=== PATIENT | male | born 1970 | race African-American/Black ===

== ENCOUNTER 2018-01-22 16:55 | Emergency (ER) | payer BC ==
--- NOTE | 2018-01-22 17:25 | UC ---
Zaki Au Natalie, scribed for Nigel Almonte MD on 01/22/18 at 1718 . Cardiac HPI - HPI Summary HPI Summary: The patient is a 47 y/o M presenting to [facility] c/o intermittent chest pain, SOB, and racing heart beat starting a few weeks ago, worsening gradually. Last week, he felt his heart racing and had a co-worker check his pulse, which was reported to be in the 200s. Today, he woke up and his heart started beating fast , but has not stopped since then. He has not had any syncopal episodes. He has not had any prior cardiac history, but he has hx of diabetes, IBS, COPD, and hypercholesterolemia. Smoker and drinker. - History of Current Complaint Stated Complaint: CHEST PAIN, HEART RACING Time Seen by Provider: 01/22/18 17:03 Hx Obtained From: Patient Onset/Duration: Gradual Onset, Lasting Weeks, Still Present Timing: Constant Initial Severity: Moderate Current Severity: Severe Character: Fast Aggravating Factor(s): Nothing Alleviating Factor(s): Nothing Associated Signs & Symptoms: Positive: Chest Pain, SOB - Allergy/Home Medications Allergies/Adverse Reactions: Allergies Allergy/AdvReac Type Severity Reaction Status Date / Time naproxen AdvReac Diarrhea Verified 01/22/18 17:30 PMH/Surg Hx/FS Hx/Imm Hx Endocrine History: Diabetes Other Endocrine History: diabetes Other Respiratory History: COPD Other GI/ History: Irrital bowel syndrome - Surgical History Surgical History: Yes Surgery Procedure, Year, and Place: PILONDIAL CYST REMOVAL - Family History Known Family History: Positive: Diabetes - Social History Alcohol Use: None Substance Use Type: Prescribed Substance Use Comment - Amount & Last Used: tramadol Smoking Status (MU): Light Every Day Tobacco Smoker Type: Cigarettes Amount Used/How Often: rolls own cigs Review of Systems Constitutional: Negative Respiratory: Shortness Of Breath Cardiovascular: Palpitations - racing heart, Chest Pain All Other Systems Reviewed And Are Negative: Yes Physical Exam Triage Information Reviewed: Yes Appearance: Well-Appearing, No Pain Distress Vital Signs Reviewed: Yes ENT: Positive: Normal ENT inspection Neck: Positive: Supple, Nontender Respiratory: Positive: Chest non-tender, Lungs clear, Normal breath sounds, No respiratory distress Cardiovascular: Positive: RRR, No Murmur, Other: - on auscultation of chest heart sounds at 100 BPM Abdomen Description: Positive: Nontender Musculoskeletal: Positive: ROM Intact, No Edema Neurological: Positive: Alert, Muscle Tone Normal. Negative: Lethargic Psychological: Positive: Normal Response To Family Skin Exam: Normal Diagnostics - EKG Cardiac Rate: Tachycardia - 207 BPM Cardiac Rhythm: Other Rhythm: New - SVT. Possible WPW. - Assessment/Plan Course Of Treatment: The patient is a 47 y/o M with racing heart and intermittent chest pain and SOB. EKG shows SVT with tachycardic HR of 207 BPM. The patient has no sensation of palpitations on examination presently, and is not having CP or SOB. The patient was discussed with Dr Yusuf in the ER at [place] and EMS is transporting the patient there for further work up. Saline lock established. He is very stable with symptoms of over a week, and no episodes of dizziness or syncope. - Clinical Impression Provider Diagnoses: palpitations. shortness of breath. hypertension Discharge - Sign-Out/Discharge Documenting (check all that apply): Discharge/Admit/Transfer - Discharge Plan Condition: Good Disposition: [facility]ANS [facility] Referrals: Grant Lawrence MD [Primary Care Provider] - - Billing Disposition and Condition Condition: GOOD Disposition: EMTALA The documentation as recorded by the Zaki richey Natalie accurately reflects the service I personally performed and the decisions made by , Nigel Almonte MD.
[2018-01-22 17:35] VITALS: BP 139/73
== END 2018-01-22 17:25 | disposition short-term general hospital (02) ==
LOC: UCEAST 16:55
DX: R06.02 Shortness of breath (principal); R00.2 Palpitations; I10 Essential (primary) hypertension; R07.9 Chest pain, unspecified; E11.9 Type 2 diabetes mellitus without complications; J44.9 Chronic obstructive pulmonary disease, unspecified; R00.0 Tachycardia, unspecified; F17.210 Nicotine dependence, cigarettes, uncomplicated; Z88.6 Allergy status to analgesic agent
CPT/HCPCS: 93005; 99213; G0463

== ENCOUNTER 2018-01-22 17:50 | Inpatient (IN) | payer BC ==
[2018-01-22] MEDS ORDERED: NS 0.9% 1000 ML*IV.FLUID IV ONE (18:32)
[2018-01-22 18:51] LABS: ABS Basophils 0.1 10^3/ul (0-0.2); ABS Eosinophils 0 10^3/ul (0-0.6); ABS Lymphocytes 3.7 10^3/ul (1.0-4.8); ABS Monocytes 0.7 10^3/ul (0-0.8); ABS Neutrophils 7.1 10^3/ul (1.5-7.7); ABS Nucleated RBC 0 10^3/ul; Eosinophil % 0.1 % (0-6); Hematocrit 31 % (42-52); Hemoglobin 11.2 g/dl (14.0-18.0); Mean Corpuscular HGB Conc 36 g/dl (31-36); Mean Corpuscular Hemoglobin 37 pg (27-31); Mean Corpuscular Volume 105 fL (80-94); Mean Platelet Volume 6.6 um3 (7.4-10.4); Nucleated Red Blood Cells % 0.2; Platelet Count 263 10^3/ul (150-450); Red Blood Count 2.99 10^6/ul (4.0-5.4); Red Cell Distribution Width 15 % (10.5-15); White Blood Count 11.5 10^3/ul (3.5-10.8)
[2018-01-22 19:01] LABS: INR 1.1 (0.77-1.02)
[2018-01-22] MEDS: Adenosine* 3 MG/ML VIAL IV PUSH ONE ×2 (19:03→19:56)
[2018-01-22] MEDS ORDERED: Adenosine* 3 MG/ML VIAL ONE (19:10)
[2018-01-22] MEDS ORDERED: Amiodarone IV VIAL* 6 ML ONE (19:22)
[2018-01-22 19:24] LABS: EGFR Non-African American 98.5 (>60)
[2018-01-22] MEDS ORDERED: Amiodarone 150 MG IVPREMIX* 150 MG/100 ML BAG IV ONE ×3 (19:25→20:06)
--- NOTE | 2018-01-22 19:29 | RAD ---
Indication: Fever, sensation of tachycardia. Tobacco use. Comparison: October 10, 2017 CT abdomen. August 03, 2017 chest radiograph. Technique: Upright AP 1903 hours Report: Clear lungs and pleural spaces. Negative for pneumothorax. The heart, pulmonary vasculature, and mediastinal contours are unremarkable. Unremarkable osseous structures and soft tissue contours. IMPRESSION: No evidence for acute intrathoracic disease.
[2018-01-22] MEDS ORDERED: Amiodarone 360 MG IVPREMIX* 360 MG/200 ML BAG IV ONE ×2 (19:33→20:11)
[2018-01-22] MEDS ORDERED: Metoprolol Tartrate TAB* 25 MG PO ONE (19:34)
[2018-01-22] MEDS ORDERED: Amiodarone IV VIAL* 3 ML ONE (19:34)
[2018-01-22] MEDS ORDERED: Aspirin 81 mg CHEW TAB* 81 MG TAB.CHEW PO ONE (19:35)
[2018-01-22] MEDS ORDERED: Docusate CAP* 100 MG PO PRN (20:07)
[2018-01-22] MEDS ORDERED: Morphine VIAL* 4 MG/ML VIAL (1 ml vial) IV PRN (20:07)
[2018-01-22] MEDS ORDERED: Senna TAB PO PRN (20:07)
[2018-01-22] MEDS ORDERED: Ondansetron INJ* 2 MG/ML VIAL IV PRN (20:07)
[2018-01-22] MEDS ORDERED: Magnesium Sulfate IV* 3 GM in NS 0.9% 100 ML* 100 ML IVPB ONE (20:09)
--- NOTE | 2018-01-22 20:10 | CONSULT ---
Subjective Date of Service: 01/22/18 Interval History: Date of admission and consult 01/22/2018 Location ER to go to ICU on Hospitalist service PMD: Dr. Lawrence CC: Palpitations Reason for consult: Ventricular tachycardia HPI: Ed Johnson is an man with a history as below. He is a reluctant historian and is accompanied by girlfriend and healthcare proxy Chrissie who helped facilitate history taking. He has had on and off chest discomfort for the last month. He has also had intermittent palpitations. These do not seem to be definitely related. He denies any history of presyncope, syncope, seizures, dyspnea or edema. He had some sweating at night but no fevers or chills. He went to urgent care and was found with a WCT that spontaneously resolved. This recurred again, did not respond to vagal maneuvers. Broke with 150 mg IV amiodarone slow push, recurred broke with another 150 mg of IV amiodarone slow push. He is only minimally symptomatic with slight palpitations during this and no active chest discomfort. PMhx Type 2 diabetes well controlled hypertriglyceridemia on gemfibrozil Alcoholism B12 deficiency IBS Denies any history of kidney disease, bleeding or blood transfusion ALLERGIES: Naproxen causing GI upset Soc Hx Alcoholism confirmed with Chrissie drinks a pint of vodka every other day, rolls own cigarettes, denies any hx of IVDU Fam hx: No early cad Medications Active Medications: Amiodarone HCl (Nexterone 360 Mg/200 Ml Ivpremix*) 360 mg in 200 mls @ 33.333 mls/hr IV ED ONCE ONE PRN Reason: 1 MG/MIN Stop: 01/23/18 01:32 Last Admin: 01/22/18 19:54 Dose: 33.333 mls/hr Amiodarone HCl (Nexterone Drip*) 150 mg in 100 mls @ 600 mls/hr IV ED ONCE ONE Stop: 01/22/18 20:15 Metoprolol Tartrate (Lopressor Tab*) 25 mg PO Q8H [facility] Home Medications: Albuterol HFA INHALER* [Ventolin HFA Inhaler*] 2 puff INH Q6H PRN 08/31/17 [ History Confirmed 01/22/18] Cyanocobalamin INJ * [Vitamin B12 INJ *] 1,000 mcg IM MONTHLY 01/22/18 [History Confirmed 01/22/18] Gemfibrozil TAB* [Lopid TAB*] 600 mg PO BID 01/22/18 [History Confirmed ] Hyoscyamine ER (NF) [Levbid (NF)] 0.375 mg PO DAILY 01/22/18 [History Confirmed 01/22/18] Multivitamins/Minerals TAB* [Theragran/minerals TAB*] 1 tab PO DAILY 01/22/18 [ History Confirmed 01/22/18] Omeprazole CAP* [Prilosec CAP* 20 MG] 20 mg PO DAILY 01/22/18 [History Confirmed 01/22/18] Review of Systems - Measurements Intake and Output: Intake and Output Last 24 Hours 01/20/18 01/21/18 01/22/18 01/23/18 06:59 06:59 06:59 06:59 Weight 150 lb - Review of Systems Constitutional Symptoms: Negative: Weight Gain, Weight Loss, Weakness, Unexplained Falls Dermatology: Negative: Rash, Skin Lesions, Skin Lumps HEENT: Negative: Change in Hearing, Vertigo Eyes: Negative: Change in Vision, Double Vision Thyroid: Positive: Palpitations Negative: Primary Hypothyroidism, Primary Hyperthyroidism, Weight Loss, Weight Gain Pulmonary: Negative: Sputum, Hemoptysis, Wheezing, Respiratory Distress, Shortness of Breath, Home Oxygen Cardiology: Positive: Chest Pain, Palpitations Negative: Shortness of Breath, Swelling of Ankles, Peripheral Vascular Dis, Edema, Faintness, Syncope, Claudication, Paroxysmal Nocturnal Dyspnea, Orthopnea Gastroenterology: Positive: Diarrhea, Change in Bowel Habits Negative: Abdominal Pain, Nausea, Difficulty Swallowing, Haematemesis, Melena Genital - Urinary: Negative: Dysuria, Hematuria Musculoskeletal: Negative: Joint Pain, Joint Stiffness Endocrinology: Positive: Diabetes Negative: Thyroid Problems, Adrenal Problems, Family Hx Endocrine Disorders, Obesity, Hyperglycemia, Hypoglycemia, Polydipsia, Polyuria Hematologic/Lymphatic: Negative: Use of Anticoagulant, Use of Antiplatelet Drugs Neurology: Negative: Headaches, Migraines, Change in Vision, Diplopia, Dizziness, Change in Balancing, Change in Coordination, Change in Speech, Change in Sphincter Function, Change in Walking, Hx of Stroke\TIA, Hx Seizures Psychiatry: Negative: Unusual Anxiety, Suicidal Ideation Allergic/Immunologic: Negative: Hx HIV, Immunocompromise Review of Systems Statement: All other review of systems negative, unless stated above. Objective Vital Signs: Temp Pulse Resp BP Pulse Ox 101.2 F 117 16 137/62 97 01/22/18 18:15 01/22/18 18:39 01/22/18 18:15 01/22/18 18:15 01/22/18 18:39 Appearance: nad, pleasant Ears/Nose/Mouth/Throat: Clear Oropharnyx Neck: NL Appearance and Movements; NL JVP, Trachea Midline Respiratory: Symmetrical Chest Expansion and Respiratory Effort, Clear to Auscultation Cardiovascular: No Edema, - - RRR with ectopy, no significant murmur noted Abdominal: NL Sounds; No Tenderness; No Distention Lymphatic: No Cervical Adenopathy Extremities: No Edema, No Clubbing, Cyanosis Skin: No Rash or Ulcers Neurological: Alert and Oriented x 3 Laboratory Results: 01/22/18 18:42 01/22/18 18:42 INR (Anticoag Therapy) 1.10 (0.77-1.02) H 01/22/18 18:42 APTT 35.0 seconds (26.0-36.3) 01/22/18 18:42 Total Bilirubin 0.40 mg/dL (0.2-1.0) 01/22/18 18:42 AST TNP 01/22/18 18:42 ALT 12 U/L (7-52) 01/22/18 18:42 Alkaline Phosphatase 91 U/L (34-104) 01/22/18 18:42 B-Natriuretic Peptide 757 pg/mL (-100) H 01/22/18 18:42 Total Protein 6.8 g/dL (6.4-8.9) 01/22/18 18:42 Albumin 3.8 g/dL (3.2-5.2) 01/22/18 18:42 Globulin 3.0 g/dL (2-4) 01/22/18 18:42 Albumin/Globulin Ratio 1.3 (1-3) 01/22/18 18:42 01/22/18 18:42 Troponin I 0.53 H* mg 1.6 repeat 1.3 procalcitonin 0.1 lipase 72 Diagnostic Imaging: EKG 06/2015: NSR, normal EKG EKG 01/22/2018: WCT appears to be VT rate 210 bpm originating near left posterior fascicle EKG afterwards: NSR with with inferior and anterolaeral deep symmetric TWI consider memory and/or ischemic related along with PVC's and NSVT with same morphology as VT Assessment/Plan In summary, Mr. Johnson is a 47 year old man with a history of alcohol and tobacco abuse ongoing, DM well controlled, high triglycerides admitted with minimally symptomatic ventricular tachycardia, febrile without obvious infectious source. - Admit to ICU - Continue amiodarone gtt protocol - Continue heparin gtt - Continue aspirin 81 mg po daily - Will hold off on second anti-platelet for now - Start metoprolol tartrate 25 mg po TID (ordered) - Trend troponin to peak - Replace Mg to 2 or greater - Unable to analyze potassium due to lipemic sample and same on repeat. Discussed with Dr. Mason from Pathology and this is not due to lack of analyzing capabilities at this hospital. Recent triglyceride < 500, lipase normal. K samples since 2011 have been normal, renal function normal. Will empirically give 20 meq k now. Will keep NPO and check K again in AM. - Check echocardiogram (ordered) - Follow blood cultures, would check HIV status for unexplained fever - Would treat fever with tylenol and external passive cooling as needed, may be helping drive arrhythmias. - Check toxicology screen - Needs ETOH withdrawal protocol - Discussed with Dr. Whitehead on phone, will plan on coronary angiogram with intent for revascularization pending outcomes of above - Discussed with Dr. Skaggs Thank you for allowing me to participate in the cardiovascular care of this patient. Please do not hesitate to contact me with questions or concerns.
[2018-01-22] MEDS ORDERED: Heparin DRIP 25,000 UNITS(*) 25,000 UNITS/500 ML BAG IV SCH (20:15)
[2018-01-22] MEDS ORDERED: NS 0.9% 1000 ML* 1,000 ML IV SCH (20:15)
[2018-01-22] MEDS ORDERED: Thiamine IV* 100 MG/ML 2 ML VIAL IM ONE (20:16)
[2018-01-22] MEDS ORDERED: Dextrose 50% Syringe 50 ML* 25 GM/50 ML SYRINGE IV PUSH PRN (20:17)
[2018-01-22] MEDS ORDERED: Thiamine IV* 100 MG, Folic Acid IV* 1 MG, Multiple Vitamin IV ADULT* 10 ML in NS 0.9% 1... IV ONE (20:18)
[2018-01-22 20:40] LABS: Urine Appearance Clear; Urine Blood 1+ (Negative); Urine Color Yellow; Urine Ketones 1+ (Negative); Urine Protein 2+(100 mg/dL) (Negative); Urine Specific Gravity 1.016 (1.010-1.030); Urine Urobilinogen Negative (Negative)
[2018-01-22] MEDS ORDERED: Albuterol HFA INHALER* 8 gm MDI INH PRN (20:40)
[2018-01-22] MEDS ORDERED: Amiodarone TAB* 400 MG ONE (20:50)
[2018-01-22] MEDS ORDERED: Amiodarone TAB* 400 MG PO ONE (20:52)
[2018-01-22] MEDS: Metoprolol Tartrate TAB* 25 MG PO SCH (21:00)
[2018-01-22] MEDS ORDERED: LORazepam INJ* 2 MG/ML 1 ML VIAL IV PUSH SCH (21:00)
[2018-01-22] MEDS ORDERED: Heparin VIAL(*) 5000 UNITS/ML VIAL (FIVE THOUSAND) IV SCH (21:00)
[2018-01-22] MEDS: Gemfibrozil TAB* 600 MG PO SCH (21:31)
[2018-01-22] MEDS: LORazepam INJ* 2 MG/ML 1 ML VIAL IV SCH (21:33)
[2018-01-22] MEDS ORDERED: Potassium Chlor TAB* 20 MEQ TAB.ER PO ONE (22:33)
[2018-01-22] MEDS: Acetaminophen TAB* 325 MG PO PRN (23:13)
[2018-01-22] MEDS ORDERED: Magnesium Sulfate 1 GM IV* 1 GM/100 ML BAG IV ONE (23:13)
--- NOTE | 2018-01-22 23:24 | HP ---
CC: Dr. Lawrence; Hiram Durham DO * HISTORY AND PHYSICAL: DATE OF ADMISSION: 01/22/18. PRIMARY CARE PHYSICIAN: Dr. Lawrence STATUE CARVER: Hiram Durham DO. TIME OF EVALUATION: 1999. CHIEF COMPLAINT: Chest pain and shortness of breath. HISTORY OF PRESENT ILLNESS: This is a 47-year-old male with a past medical history of alcohol and tobacco use with diabetes and hypertension, who presents to the emergency room for urgent care with v-tach. The patient states he has been having chest pain and palpitations off and on for the past 2 weeks to may be a month, they have become more frequent in duration and lasting longer. He also gets intermittent shortness of breath. He went to urgent care today where they did an EKG and found that he was in v-tach. They brought him over to the emergency room for further evaluation. The patient is alert with stable vitals when he is in v- tach. He states he denies any loss of consciousness or presyncopal symptoms. No cough. As mentioned, intermittently short of breath, some nausea, no vomiting, no abdominal pain, no urinary symptoms, no changes in his weight. He has issues with IBS. He states that he has been having a lot of diarrhea, but has improved with medication. No lower extremity swelling. No recent traveling. No recent antibiotic use. He was having some sweating in the emergency room and noted to have a fever as well. Currently, he is chest pain free. No shortness of breath. His v-tach broke on its own on arrival to the emergency room, went back into v-tach rather quickly, has required several boluses of amiodarone, which have temporized and currently has tachycardia with ectopy, but does back into v-tach rather frequently. In the emergency room, Dr. Hiram Durham from Cardiology evaluated the patient and the patient was admitted to the ICU. He has been given a full dose aspirin, 2 L of fluid, amiodarone, and metoprolol. PAST MEDICAL HISTORY: 1. Diabetes, diet controlled. He just checks his glucose, not on any medications. 2. Hypertension. 3. Hyperlipidemia. 4. IBS. 5. COPD, on room air. 6. Tobacco use. 7. Heavy alcohol use. MEDICATIONS: 1. Omeprazole 20 mg p.o. daily. 2. Gemfibrozil 600 mg p.o. b.i.d. 3. Multivitamin p.o. daily. 4. Levbid 0.375 mg p.o. daily. 5. Vitamin B12 injections 1000 micrograms monthly. 6. Albuterol inhaler two puffs q.6 hours as needed. ALLERGIES: NAPROXEN, diarrhea. FAMILY HISTORY: Not completely well known as parents at a young age. He thinks his father from cardiac complications after having a pacemaker placed. SOCIAL HISTORY: The patient lives with his girlfriend, Chrissie who is his healthcare proxy. 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 As mentioned, he drinks heavy alcohol, about a pint of vodka per day. He rolls his own tobacco and smokes about a pack a day for the past several years. No illicit drug use. CODE STATUS: Full code. REVIEW OF SYSTEMS: A 14-point review of systems as mentioned in the HPI, otherwise negative. PHYSICAL EXAMINATION GENERAL: In no acute distress, minimally mild tremor noted. Girlfriend is at the bedside. VITAL SIGNS: Temp T max 101.2, pulse rate 111, respiratory rate 18, oxygen saturation 97% on room air, and blood pressure 133/94. HEENT: Head, normocephalic. Pupils are equal and reactive, anicteric. Oropharynx, mucous membranes moist. NECK: Supple. No lymphadenopathy. RESPIRATORY: Diminished breath sounds. No wheezing, rhonchi or rales. CARDIAC: Tachycardia with ectopic beats with systolic murmur most prominent at the bases. ABDOMEN: Positive bowel sounds. Soft, nondistended. Hepatomegaly noted. EXTREMITIES: No clubbing, cyanosis or edema. +1 DPs. NEUROLOGIC: Alert and oriented x3. As mentioned, mild tremor noted. No gross focal neurologic deficits. DIAGNOSTIC STUDIES/LAB DATA: White count 11.5, hemoglobin 11.2, hematocrit 31 , platelets 263, INR is 1.10. Sodium is 135, potassium 100, bicarb 19, BUN 9, creatinine 0.83, glucose 162, lactic acid 3.3, troponin 0.53, total CK is 204, mag is 1.6, BNP is 757. Procalcitonin is 0.1. Urine shows +1 ketones, +1 blood. Urine tox screen in negative. Alcohol is pending. Radiographic data: Chest x-ray shows no evidence for acute intrathoracic disease. EKG, sinus tachycardia with bigemini and runs of V-tach. His initial EKG on arrival shows V-tach with a rate of 207. ASSESSMENT AND PLAN: This is a 47-year-old male with a past medical history of hypertension, hyperlipidemia, diabetes with a significant tobacco and alcohol history, who presents to the emergency room from an urgent care with sustained stable ventricular tachycardia. 1. Stable ventricular tachycardia. Assessment: Unclear of the etiology concerning for ischemia, also cardiomyopathy related to his heavy alcohol use. There is concern about maintaining him in sinus with the amiodarone drip, Dr. Durham is at the bedside assisting. Plan: He is admitted to the ICU. We will continue him on the amiodarone drip for now, may need to switch to lidocaine drip. The patient has been started on heparin drip. We will continue him on metoprolol and aspirin. We are following up on this potassium trending his troponin, checking a lipid panel, ordering an echocardiogram. We will keep him n.p.o. after midnight. Will check a lipase. We will also check an alcohol level and repeat a lactic acid, and follow up with Dr. Durham from Cardiology and also I did sign out to Dr. Bruno Durham, the food and nutrition supervisor, who will take over service in the morning. 2. Alcohol use. Assessment: The patient with significant alcohol history. No signs of withdrawal currently. He does have a temperature that could be related to his alcohol use. No focal signs of infection. Plan: We will put him on an Ativan taper and p.r.n. and WAM protocol. We will give him banana bag and follow up on his alcohol level. He also needs a repeat of his AST. We will hold off on starting him on a statin in the setting with heavy alcohol use at this time. 3. Fever. Assessment: It could be related to his alcohol use. No focal signs of infection currently. Plan: Blood cultures had been drawn. We will hold off on antibiotics at this point. 4. Chronic medical problems: Chronic obstructive pulmonary disease. The patient is on room air, appears stable. We will continue his albuterol inhaler as needed. Irritable bowel syndrome. I suspect this is related to his alcohol use and really a true irritable bowel syndrome. We will continue him on Levbid for now. Hyperlipidemia. As mentioned, we will check his lipid panel. Continue his gemfibrozil. Statin may be contraindicated with his alcohol use and following up on his AST level. Gastroesophageal reflux disease. Continue omeprazole 20 mg daily. Diabetes, diet controlled. We will check a hemoglobin A1c. Lispro sliding scale for now. Hypertension. The patient is not on any agents at home. He has been started on metoprolol. 10. DVT prophylaxis. The patient scores moderate risk. He is on a heparin drip. 11. Code status. Full code. PATIENT TIME: Greater than 60 minutes was spent doing history and physical, more than half the time spent in direct patient contact and critical care time. Both Dr. Hiram Durham and Dr. Bruno Durham from Cardiology and the food and nutrition supervisor are aware and involved in this patient's case. [id number]/[facility] #: [id number] MTDD
[2018-01-22] MEDS ORDERED: Mouth Piece, Nicotine* 1 EACH CARTRIDGE INH PRN ×2 (23:37)
[2018-01-22] MEDS ORDERED: KCL 20 MEQ/100 ML IVPREMIX* 20 MEQ/100 ML BAG IV SCH (23:45)
[2018-01-23] MEDS: KCL premix 10 MEQ/50 ML IVPREMIX x 4 RUNS IV SCH ×4 (00:22→04:29)
--- NOTE | 2018-01-23 00:23 | ED ---
Anibal Au Rebecca, scribed for Leatha Tyler MD on 01/22/18 at 1840 . Palpitations / Dysrhythmia - HPI Summary HPI Summary: Pt is a 47 y/o M BIBA from [facility] due to SVT vs VT after originally presenting for palpitations. Pt has been experiencing intermittent episodes of palpitations for about a month, more consistently for the past week, especially worsening (01/18/18, 4 days ago) with sx described as fast. While at work earlier today, his heart rate felt fast. His coworker measured it manually , counting >200 bpm which prompted him to come to [facility]. On evaluation in the ED, pt's HR is between 217 and 225 and the pt does not feel the palpitations currently. While at [facility], his HR was between 220 and 240 bpm and he spontaneously converted without medication or maneuver and he was without symptoms with the rapid HR. Additionally notes subjective fever, though when measured at home it has been normal, and was 101.2 in the ED. Pt also reports intermittent SOB and CP, particularly with exertion, and no complaints of CP currently., and the CP and rapid HR/palpitations are not necessarily at the same time. Negative cough and N/V. No recent illness. Negative cardiac Hx with a PMHx including HTN (is not on medication), HLD, and DM. SHx daily alcohol use (~1 pint of liquor over 2 days with his last drink yesterday), current smoker, and negative drug use. Is not on blood thinners. PCP is Dr. Lawrence and was last seen on Monday (01/17/18, 5 days ago) which was normal. States that with naproxen he experiences diarrhea, no hives or anaphylaxis. 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, Medical Records - [facility] Onset/Duration: Gradual Onset, Lasting Weeks - About 1 month, Still Present, Worse Since - 1 week, especially 4 days ago Timing: Intermittent Episodes Lasting: - minutes to hours Severity Initially: Moderate Severity Currently: Moderate Character: Fast Aggravating: Nothing Alleviating: Other - Spontaneous resolution in today Associated Signs & Symptoms: Chest Pain, Shortness of Breath - Risk Factors Cardiac: Hypertension, Smoking - former, Diabetes, Elevated Lipids, Family History - Allergy/Home Medications Allergies/Adverse Reactions: Allergies Allergy/AdvReac Type Severity Reaction Status Date / Time naproxen AdvReac Diarrhea Verified 01/22/18 17:30 Home Medications: Home Medications Cyanocobalamin INJ * [Vitamin B12 INJ *] 1,000 mcg IM MONTHLY 01/22/18 [History Confirmed 01/22/18] Gemfibrozil TAB* [Lopid TAB*] 600 mg PO BID 01/22/18 [History Confirmed ] Hyoscyamine ER (NF) [Levbid (NF)] 0.375 mg PO DAILY 01/22/18 [History Confirmed 01/22/18] Multivitamins/Minerals TAB* [Theragran/minerals TAB*] 1 tab PO DAILY 01/22/18 [ History Confirmed 01/22/18] Omeprazole CAP* [Prilosec CAP* 20 MG] 20 mg PO DAILY 01/22/18 [History Confirmed 01/22/18] PMH/Surg Hx/FS Hx/Imm Hx Previously Healthy: No Endocrine/Hematology History: Reports: Hx Diabetes - type 2 Cardiovascular History: Reports: Hx Hypercholesterolemia, Hx Hypertension Denies: Hx Pacemaker/ICD History: Denies: Hx Dialysis, Hx Renal Disease Sensory History: Denies: Hx Hearing Aid Psychiatric History: Reports: Hx Substance Abuse - daily alcohol use Denies: Hx Panic Disorder - Surgical History Surgery Procedure, Year, and Place: PILONDIAL CYST REMOVAL Infectious Disease History: No Infectious Disease History: Denies: Traveled Outside the [place] in Last 30 Days - Family History Known Family History: Positive: Diabetes - Social History Occupation: Employed Full-time Lives: With Family Alcohol Use: Daily Alcohol Amount: 1 pint/ day Substance Use Type: Reports: None Smoking Status (MU): Light Every Day Tobacco Smoker Type: Cigarettes Amount Used/How Often: rolls own cigarettes Review of Systems Positive: Fever Positive: Palpitations - fast, Chest Pain - intermittent - none presently Positive: Shortness Of Breath. Negative: Cough Negative: Vomiting, Nausea Skin: Negative Neurological: Negative Psychological: Normal All Other Systems Reviewed And Are Negative: Yes Physical Exam - Summary Physical Exam Summary: Appearance: Ill-appearing, no pain distress, well-nourished, in V-tach at 220, talking with readily palpable radial pulses, BP 118 systolic palp manually, no response to valsalva Skin: Warm, color reflects adequate perfusion, dry Head: Normal Head/Face inspection, Atraumatic Eyes: Conjunctiva clear ENT: Normal inspection Neck: Supple, no nodes, no JVD, no bruits Respiratory: Lungs clear, Normal breath sounds, no respiratory distress Cardio: V-tach, No murmur, pulses palpable, brisk capillary refill Abdomen: Soft, nontender Bowel sounds: present Musculoskeletal: Strength Intact/ROM intact. No calf tenderness. No edema. Psychological: Normal Neuro: Alert, muscle tone normal, no focal deficit Triage Information Reviewed: Yes Vital Signs On Initial Exam: Initial Vitals Temp Pulse Resp BP Pulse Ox 101.2 F 117 16 137/62 97 01/22/18 18:15 01/22/18 18:15 01/22/18 18:15 01/22/18 18:15 01/22/18 18:15 Vital Signs Reviewed: Yes Diagnostics - Vital Signs Vital Signs Temp Pulse Resp BP Pulse Ox 01/22/18 18:15 101.2 F 117 16 137/62 97 - Laboratory Lab Results: Lab Results 01/22/18 01/22/18 01/22/18 Range/Units 18:42 18:42 18:42 WBC 11.5 H (3.5-10.8) 10^3/ul RBC 2.99 L (4.0-5.4) 10^6/ul Hgb 11.2 L (14.0-18.0) g/dl Hct 31 L (42-52) % MCV 105 H (80-94) fL MCH 37 H (27-31) pg MCHC 36 (31-36) g/dl RDW 15 (10.5-15) % Plt Count 263 (150-450) 10^3/ul MPV 6.6 L (7.4-10.4) um3 Neut % (Auto) 61.2 (38-83) % Lymph % (Auto) 32.0 (25-47) % Sandoval % (Auto) 5.7 (0-7) % Eos % (Auto) 0.1 (0-6) % Baso % (Auto) 1.0 (0-2) % Absolute Neuts (auto) 7.1 (1.5-7.7) 10^3/ul Absolute Lymphs (auto) 3.7 (1.0-4.8) 10^3/ul Absolute Monos (auto) 0.7 (0-0.8) 10^3/ul Absolute Eos (auto) 0 (0-0.6) 10^3/ul Absolute Basos (auto) 0.1 (0-0.2) 10^3/ul Absolute Nucleated RBC 0 10^3/ul Nucleated RBC % 0.2 ESR 25 H (0-14) mm/Hr INR (Anticoag Therapy) 1.10 H (0.77-1.02) APTT 35.0 (26.0-36.3) seconds Sodium 135 L (139-145) mmol/L Potassium TNP Chloride 100 L (101-111) mmol/L Carbon Dioxide 19 L (22-32) mmol/L Anion Gap 16 H (2-11) mmol/L BUN 9 (6-24) mg/dL Creatinine 0.83 (0.67-1.17) mg/dL Est GFR ( Amer) 126.6 (>60) Est GFR (Non-Af Amer) 98.5 (>60) BUN/Creatinine Ratio 10.8 (8-20) Glucose 162 H (70-100) mg/dL Hemoglobin A1c (4.0-5.6) % Lactic Acid (0.5-2.0) mmol/L Calcium 8.6 (8.6-10.3) mg/dL Magnesium 1.6 L (1.9-2.7) mg/dL Total Bilirubin 0.40 (0.2-1.0) mg/dL AST TNP ALT 12 (7-52) U/L Alkaline Phosphatase 91 (34-104) U/L Total Creatine Kinase 204 (10-223) U/L Troponin I 0.53 H* (<0.04) ng/mL C-Reactive Protein 3.99 (< 5.00) mg/L B-Natriuretic Peptide ( - 100) pg/mL Total Protein 6.8 (6.4-8.9) g/dL Albumin 3.8 (3.2-5.2) g/dL Globulin 3.0 (2-4) g/dL Albumin/Globulin Ratio 1.3 (1-3) Procalcitonin (<0.6) ng/mL TSH 1.90 (0.34-5.60) mcIU/mL Urine Opiates Screen (None Detect) Ur Barbiturates Screen (None Detect) Ur Phencyclidine Scrn (None Detect) Ur Amphetamines Screen (None Detect) U Benzodiazepines Scrn (None Detect) Urine Cocaine Screen (None Detect) U Cannabinoids Screen (None Detect) Serum Alcohol 61 H (<10) mg/dL HIV 1&2 Antibody 01/22/18 01/22/18 01/22/18 Range/Units 18:42 18:42 18:42 WBC (3.5-10.8) 10^3/ul RBC (4.0-5.4) 10^6/ul Hgb (14.0-18.0) g/dl Hct (42-52) % MCV (80-94) fL MCH (27-31) pg MCHC (31-36) g/dl RDW (10.5-15) % Plt Count (150-450) 10^3/ul MPV (7.4-10.4) um3 Neut % (Auto) (38-83) % Lymph % (Auto) (25-47) % Sandoval % (Auto) (0-7) % Eos % (Auto) (0-6) % Baso % (Auto) (0-2) % Absolute Neuts (auto) (1.5-7.7) 10^3/ul Absolute Lymphs (auto) (1.0-4.8) 10^3/ul Absolute Monos (auto) (0-0.8) 10^3/ul Absolute Eos (auto) (0-0.6) 10^3/ul Absolute Basos (auto) (0-0.2) 10^3/ul Absolute Nucleated RBC 10^3/ul Nucleated RBC % ESR (0-14) mm/Hr INR (Anticoag Therapy) (0.77-1.02) APTT (26.0-36.3) seconds Sodium (139-145) mmol/L Potassium Chloride (101-111) mmol/L Carbon Dioxide (22-32) mmol/L Anion Gap (2-11) mmol/L BUN (6-24) mg/dL Creatinine (0.67-1.17) mg/dL Est GFR ( Amer) (>60) Est GFR (Non-Af Amer) (>60) BUN/Creatinine Ratio (8-20) Glucose (70-100) mg/dL Hemoglobin A1c (4.0-5.6) % Lactic Acid 3.3 H* (0.5-2.0) mmol/L Calcium (8.6-10.3) mg/dL Magnesium (1.9-2.7) mg/dL Total Bilirubin (0.2-1.0) mg/dL AST ALT (7-52) U/L Alkaline Phosphatase (34-104) U/L Total Creatine Kinase (10-223) U/L Troponin I (<0.04) ng/mL C-Reactive Protein (< 5.00) mg/L B-Natriuretic Peptide 757 H ( - 100) pg/mL Total Protein (6.4-8.9) g/dL Albumin (3.2-5.2) g/dL Globulin (2-4) g/dL Albumin/Globulin Ratio (1-3) Procalcitonin 0.1 (<0.6) ng/mL TSH (0.34-5.60) mcIU/mL Urine Opiates Screen (None Detect) Ur Barbiturates Screen (None Detect) Ur Phencyclidine Scrn (None Detect) Ur Amphetamines Screen (None Detect) U Benzodiazepines Scrn (None Detect) Urine Cocaine Screen (None Detect) U Cannabinoids Screen (None Detect) Serum Alcohol (<10) mg/dL HIV 1&2 Antibody Pending 01/22/18 01/22/18 Range/Units 18:42 18:42 WBC (3.5-10.8) 10^3/ul RBC (4.0-5.4) 10^6/ul Hgb (14.0-18.0) g/dl Hct (42-52) % MCV (80-94) fL MCH (27-31) pg MCHC (31-36) g/dl RDW (10.5-15) % Plt Count (150-450) 10^3/ul MPV (7.4-10.4) um3 Neut % (Auto) (38-83) % Lymph % (Auto) (25-47) % Sandoval % (Auto) (0-7) % Eos % (Auto) (0-6) % Baso % (Auto) (0-2) % Absolute Neuts (auto) (1.5-7.7) 10^3/ul Absolute Lymphs (auto) (1.0-4.8) 10^3/ul Absolute Monos (auto) (0-0.8) 10^3/ul Absolute Eos (auto) (0-0.6) 10^3/ul Absolute Basos (auto) (0-0.2) 10^3/ul Absolute Nucleated RBC 10^3/ul Nucleated RBC % ESR (0-14) mm/Hr INR (Anticoag Therapy) (0.77-1.02) APTT (26.0-36.3) seconds Sodium (139-145) mmol/L Potassium Chloride (101-111) mmol/L Carbon Dioxide (22-32) mmol/L Anion Gap (2-11) mmol/L BUN (6-24) mg/dL Creatinine (0.67-1.17) mg/dL Est GFR ( Amer) (>60) Est GFR (Non-Af Amer) (>60) BUN/Creatinine Ratio (8-20) Glucose (70-100) mg/dL Hemoglobin A1c 4.6 (4.0-5.6) % Lactic Acid (0.5-2.0) mmol/L Calcium (8.6-10.3) mg/dL Magnesium (1.9-2.7) mg/dL Total Bilirubin (0.2-1.0) mg/dL AST ALT (7-52) U/L Alkaline Phosphatase (34-104) U/L Total Creatine Kinase (10-223) U/L Troponin I (<0.04) ng/mL C-Reactive Protein (< 5.00) mg/L B-Natriuretic Peptide ( - 100) pg/mL Total Protein (6.4-8.9) g/dL Albumin (3.2-5.2) g/dL Globulin (2-4) g/dL Albumin/Globulin Ratio (1-3) Procalcitonin (<0.6) ng/mL TSH (0.34-5.60) mcIU/mL Urine Opiates Screen None detected (None Detect) Ur Barbiturates Screen None detected (None Detect) Ur Phencyclidine Scrn None detected (None Detect) Ur Amphetamines Screen None detected (None Detect) U Benzodiazepines Scrn None detected (None Detect) Urine Cocaine Screen None detected (None Detect) U Cannabinoids Screen None detected (None Detect) Serum Alcohol (<10) mg/dL HIV 1&2 Antibody Result Diagrams: 01/22/18 18:42 01/22/18 23:00 Lab Statement: Any lab studies that have been ordered have been reviewed, and results considered in the medical decision making process. - Radiology CXR Xray Interpretation: No Acute Changes - No evidence for acute intrathoracic disease. ED physician reviewed this radiology report. Radiology Interpretation Completed By: Radiologist - EKG 1839 Cardiac Rate: Tachycardia EKG Rhythm: Sinus Tachycardia ST Segment: Non-Specific Ectopy: PVCs - Multiple EKG Interpretation: Nl QTc, nl axis, nl AV/IV CT EKG Comparison: Other - Compared with previous, now in sinus tachycardia 1920 EKG Rhythm: V-Tachycardia - 212 bpm EKG Interpretation: Discussed with Dr. Hiram Durham EKG Comparison: Other - Compared with previous, the pt is now in V-tach 192 Cardiac Rate: Tachycardia - 134 bpm EKG Rhythm: Sinus Tachycardia ST Segment: Non-Specific EKG Interpretation: Nl AV.IV CT, nl QTc, nl axis; ectopy of ventricular bigeminy EKG Comparison: Other - Compared with previous, pt is now in sinus tachycardia Course/Dx - Course Assessment/Plan: Pt is a 47 y/o M with a PMHx of HTN, HLD, DM and SHx of every day EtOH use who BIBA from [facility] due to SVT vs VT and palpitations intermittently for the past month, consistently since (4 days ago). Additionally notes fever and intermittent SOB and CP, though he has no CP currently. Temperature in the ED was 101.2. Pt had Vtach x 3 in the ED that responded to amiodarone and converted to ST. Bloodwork was done, with results including a WBC of 11.5, INR of 1.1, Hgb of 11.2, lactic acid of 3.3, troponin of 0.53 and BNP of 757. First EKG is sinus tachycardia at a rate of 134 bpm, the second shows v-tach at a rate of 212 bpm, and the third shows sinus tachycardia at a rate of 134 bpm. The second and third EKGs were evaluated by Dr. Greg Durham and discussed with him . CXR reveals no acute findings. In the ED course, pt received adenosine 6mg then 12 mg with no response. Per Dr. Delfina Durham, by now at bedside, pt given amiodarone 150mg IV push over 10 mins with conversion to sinus tach. Pt had pads on at all times during this, in case pt needed cardioversion or defibrillation. Pt remained alert, answering questions appropriately throughout the time he had HR >200. Pt was given ASA 324mg po ( despite adverse rxn to naproxen of diarrhea), Metoprolol tartrate 25mg po and fluids. Pt then had second bout of Vtach in the 200's, again given amiodarone 150mg IV, and started on amiodarone drip. Dr. Durham and I were at bedside continuously throughout this. Pt will also be given heparin per protocol per Dr. Durham. Discussed care of pt with Dr. Durham who presented immediately in the ED and evaluated and treated the pt in the ED. Discussed care with Dr. Skaggs who accepts for admission and is present in the ED immediately upon consult. His condition is critical and he will be admitted with Dx of V-tach. Allergy noted and pt medications reviewed this visit. - Diagnoses Differential Diagnosis/HQI/PQRI: Positive: Cardiomyopathy, Coronary Artery Disease, Myocarditis, Pericarditis, Pulmonary Embolism, V-Tach Provider Diagnoses: V-tach, Fever, Alcohol abuse - Physician Notifications Discussed Care Of Patient With: Hiram Durham Time Discussed With Above Provider: 19:18 Instructed by Provider To: Other - Present immediately upon consult and evaluated and treated the pt in the ED. Discussed care of pt with Dr. Skaggs at 1940 who accepts pt for admission and is present in the ED. - Critical Care Time Critical Care Time: 30-74 min - 30 minutes Discharge - Sign-Out/Discharge Documenting (check all that apply): Discharge/Admit/Transfer - Admit ICU - Discharge Plan Condition: Critical Disposition: ADMITTED TO [facility] - Billing Disposition and Condition Condition: CRITICAL Disposition: [facility] The documentation as recorded by the Anibal richey Rebecca accurately reflects the service I personally performed and the decisions made by , Leatha Tyler MD.
[2018-01-23] MEDS ORDERED: Amiodarone 360 MG IVPREMIX* 360 MG/200 ML BAG IV SCH (02:00)
[2018-01-23] MEDS: Nicotine Inhaler* 10 MG AMP INH PRN ×3 (04:29→16:32)
[2018-01-23] MEDS: LORazepam INJ* 2 MG/ML 1 ML VIAL IV SCH ×2 (05:00→12:49)
[2018-01-23] MEDS: Metoprolol Tartrate TAB* 25 MG PO SCH (05:00)
[2018-01-23] MEDS: Acetaminophen TAB* 325 MG PO PRN (06:29)
[2018-01-23 06:38] LABS: ABS Basophils 0.1 10^3/ul (0-0.2); ABS Eosinophils 0 10^3/ul (0-0.6); ABS Lymphocytes 2.6 10^3/ul (1.0-4.8); ABS Monocytes 0.6 10^3/ul (0-0.8); ABS Neutrophils 4.9 10^3/ul (1.5-7.7); ABS Nucleated RBC 0 10^3/ul; Eosinophil % 0.3 % (0-6); Hematocrit 33 % (42-52); Hemoglobin 11.5 g/dl (14.0-18.0); Lymphocyte % 31.1 % (25-47); Mean Corpuscular HGB Conc 35 g/dl (31-36); Mean Corpuscular Hemoglobin 37 pg (27-31); Mean Corpuscular Volume 105 fL (80-94); Mean Platelet Volume 7.4 um3 (7.4-10.4); Nucleated Red Blood Cells % 0.2; Platelet Count 235 10^3/ul (150-450); Red Blood Count 3.13 10^6/ul (4.0-5.4); Red Cell Distribution Width 15 % (10.5-15); White Blood Count 8.2 10^3/ul (3.5-10.8)
[2018-01-23 06:50] LABS: EGFR Non-African American 102.7 (>60)
--- NOTE | 2018-01-23 08:18 | PN ---
Subjective Date of Service: 01/23/18 Interval History: f/u VT No cp, palpitations or dyspnea Tele: No further VT after electrolyte replacement Medications Active Medications: Acetaminophen (Tylenol Tab*) 650 mg PO Q4H PRN PRN Reason: FEVER/PAIN Last Admin: 01/23/18 06:29 Dose: 650 mg Albuterol (Ventolin Hfa Inhaler*) 2 puff INH Q6H PRN PRN Reason: WHEEZING Aspirin (Aspirin 81 Mg Chew Tab*) 81 mg PO DAILY [facility] Device (Nicotine Mouth Piece*) 1 each INH .USE WITH NICOTROL PRN PRN Reason: CRAVING Last Admin: 01/23/18 04:29 Dose: 1 each Dextrose (D50w Syringe 50 Ml*) 12.5 gm IV PUSH .FOR FS < 60 - SS PRN PRN Reason: FS < 60 Docusate Sodium (Colace Cap*) 100 mg PO BID PRN PRN Reason: CONSTIPATION Folic Acid (Folvite Tab*) 1 mg PO DAILY [facility] Gemfibrozil (Lopid Tab*) 600 mg PO BID [facility] Last Admin: 01/22/18 21:31 Dose: 600 mg Heparin Sodium (Porcine) (Heparin Vial(*)) 0 units IV .PER PROTOCOL [facility] Last Admin: 01/22/18 21:12 Dose: 4,000 units Hyoscyamine (Levbid (Nf)) 0.375 mg PO DAILY [facility] Heparin Sodium/Dextrose (Heparin Drip 25,000 Units(*)) 25,000 units in 500 mls @ 0 mls/hr IV PER RATE [facility]; Per Protocol PRN Reason: Protocol Last Admin: 01/22/18 21:12 Dose: 800 mls/hr Insulin Human Lispro (Humalog*) 0 units SUBCUT AC [facility] PRN Reason: Protocol Lorazepam (Ativan Inj*) 1 mg IV Q8H [facility] PRN Reason: Taper Stop: 01/25/18 16:59 Last Admin: 01/23/18 05:00 Dose: 1 mg Lorazepam (Ativan Inj*) 0 - 3 mg IV PUSH .PER [facility] PROTOCOL DARNELL PRN Reason: Protocol Magnesium Oxide (Magox 400 Tab*) 400 mg PO DAILY [facility] Metoprolol Succinate (Toprol Xl Tab*) 50 mg PO DAILY [facility] Morphine Sulfate (Morphine Vial*) 2 mg IV Q4H PRN PRN Reason: PAIN Multivitamins/Minerals (Theragran/Minerals Tab*) 1 tab PO DAILY [facility] Nicotine (Nicotine Inhaler*) 10 mg INH Q2H PRN PRN Reason: CRAVING Last Admin: 01/23/18 04:29 Dose: 10 mg Omeprazole (Prilosec Cap*) 20 mg PO DAILY [facility] Ondansetron HCl (Zofran Inj*) 4 mg IV Q4H PRN PRN Reason: NAUSEA/VOMITING Senna (Senokot Tab*) 1 tab PO BID PRN PRN Reason: CONSTIPATION Thiamine HCl (Vitamin B-1 Tab*) 100 mg PO DAILY [facility] Objective Vital Signs: Temp Pulse Resp BP Pulse Ox 99.4 F 71 32 129/86 91 01/23/18 03:32 01/23/18 08:00 01/23/18 08:00 01/23/18 08:00 01/23/18 08:00 Oxygen Devices in Use Now: None Appearance: nad, pleasant Ears/Nose/Mouth/Throat: Clear Oropharnyx Neck: NL Appearance and Movements; NL JVP, Trachea Midline Respiratory: Symmetrical Chest Expansion and Respiratory Effort, Clear to Auscultation Cardiovascular: No Edema, - - RRR with ectopy, no significant murmur noted Abdominal: NL Sounds; No Tenderness; No Distention Lymphatic: No Cervical Adenopathy Extremities: No Edema, No Clubbing, Cyanosis Skin: No Rash or Ulcers Neurological: Alert and Oriented x 3 Laboratory Results: 01/23/18 06:20 01/23/18 06:20 INR (Anticoag Therapy) 1.10 (0.77-1.02) H 01/22/18 18:42 APTT 69.8 seconds (26.0-36.3) H 01/23/18 02:55 Total Bilirubin 1.20 mg/dL (0.2-1.0) H 01/23/18 06:20 AST 117 U/L (13-39) H 01/23/18 06:20 ALT 26 U/L (7-52) 01/23/18 06:20 Alkaline Phosphatase 129 U/L (34-104) H 01/23/18 06:20 B-Natriuretic Peptide 757 pg/mL (-100) H 01/22/18 18:42 Total Protein 7.0 g/dL (6.4-8.9) 01/23/18 06:20 Albumin 3.7 g/dL (3.2-5.2) 01/23/18 06:20 Globulin 3.3 g/dL (2-4) 01/23/18 06:20 Albumin/Globulin Ratio 1.1 (1-3) 01/23/18 06:20 Triglycerides 480 mg/dL 01/23/18 06:20 Cholesterol 121 mg/dL 01/23/18 06:20 LDL Cholesterol mg/dL 01/23/18 06:20 HDL Cholesterol 32.1 mg/dL 01/23/18 06:20 TSH 1.90 mcIU/mL (0.34-5.60) 01/22/18 18:42 01/22/18 01/22/18 01/22/18 18:42 21:00 23:00 Troponin I 0.53 H* Cancelled 0.56 H* 01/23/18 06:20 Troponin I 0.46 H* Diagnostic Imaging: EKG 06/2015: NSR, normal EKG EKG 01/22/2018: WCT appears to be VT rate 210 bpm originating near left posterior fascicle EKG afterwards: NSR with with inferior and anterolaeral deep symmetric TWI consider memory and/or ischemic related along with PVC's and NSVT with same morphology as VT EKG 01/23/2018: NSR, inferior and anterolateral symmetric TWI, long QT Assessment/Plan In summary, Mr. Johnson is a 47 year old man with a history of alcohol and tobacco abuse ongoing, DM well controlled, high triglycerides admitted with minimally symptomatic ventricular tachycardia in the setting of fever and low electrolytes (K 3.0, mg 1.3). Now asymptomatic and arrhythmias resolved after amiodarone, electrolyte replacement and fever control - d/c amiodarone - Continue heparin gtt for now. - Continue aspirin 81 mg po daily - Will hold off on second anti-platelet for now - Change BB to toprol 50 mg po daily (ordered) - Start mag 400 mg po daily (ordered) - Keep Mg 2 or greater and K 4 or greater - Continue gemfibrozil - Echo pending - Continue ETOH withdrawal protocol. Needs rehab. - Fever evaluation/treatment per primary service. Procalcitonin normal. - Coronary angiogram with intent for revascularization planned for later today, discussed with Dr. Whitehead. If no intervention and remains without arrhythmias can be transferred to telemetry late today Thank you for allowing me to participate in the cardiovascular care of this patient. Please do not hesitate to contact me with questions or concerns.
[2018-01-23] MEDS: Gemfibrozil TAB* 600 MG PO SCH (08:19)
[2018-01-23] MEDS ORDERED: Multivitamins/Minerals TAB PO SCH ×2 (09:00)
[2018-01-23] MEDS ORDERED: Omeprazole CAP* 20 MG PO SCH (09:00)
[2018-01-23] MEDS ORDERED: Aspirin 81 mg CHEW TAB* 81 MG TAB.CHEW PO SCH (09:00)
[2018-01-23] MEDS ORDERED: Folic Acid TAB* 1 MG PO SCH (09:00)
[2018-01-23] MEDS ORDERED: Magnesium Oxide TAB* 400 MG PO SCH (09:00)
[2018-01-23] MEDS ORDERED: Hyoscyamine ER (NF) 0.375 MG TAB PO SCH (09:00)
[2018-01-23] MEDS ORDERED: Thiamine TAB* 100 MG TAB PO SCH (09:00)
[2018-01-23] MEDS ORDERED: Metoprolol Succinate XL TAB* 50 MG PO SCH (09:00)
--- NOTE | 2018-01-23 09:18 | ECHO ---
Patient: HARI BARRON [facility] Rec#: [id number] : 1970 Date: 01/23/2018 Age: 47y Height: 177.8 cm / 70.0 in Weight: 68.04 kg / 150.0 lbs Sex: M BSA: 1.85 Room#: [facility]8 Admit Date#: 01/22/2018 Type: Inpatient Referring: Hiram Durham DO Reading: Hiram Durham DO Tin Plater: Dayana Taylor RDCS CC: DANIE YOUNGBLOOD Transthoracic Echocardiogram Indication: Ventricular tachycardia BP: 110/82 HR: 71 Rhythm: NSR Findings History: HTN, HLD, DM II, ETOH abuse, smoker. Technical Comments: The study quality is fair. Completed at 0825. Left Ventricle: The left ventricular chamber size is normal. Mild concentric left ventricular hypertrophy is observed. There is moderate to severely decreased left ventricular systolic function. The estimated ejection fraction is 25-30%. Abnormal left ventricular diastolic function is observed. The mid anterolateral, and mid inferolateral wall segments are hypokinetic (score 2). The basal inferior, mid inferior, apical lateral, and apical inferior wall segments are akinetic (score 3). Overall wallmotion score index is 1.91 Left Atrium: The left atrial chamber size is normal. Right Ventricle: The right ventricular cavity size is normal. The right ventricular global systolic function is mildly reduced. Right Atrium: The right atrial cavity size is normal. Aortic Valve: The aortic valve is trileaflet. There is no evidence of aortic valve thickening. There is mild to moderate aortic regurgitation. There is no evidence of aortic stenosis. Mitral Valve: The mitral valve leaflets are mildly thickened. There is mild mitral regurgitation. There is no evidence of mitral stenosis. Tricuspid Valve: The tricuspid valve leaflets are normal. There is mild tricuspid regurgitation. There is evidence of mild pulmonary hypertension. There is no tricuspid stenosis. Pulmonic Valve: The pulmonic valve appears normal. There is a trace pulmonic regurgitation. There is no pulmonic stenosis. Pericardium: There is no significant pericardial effusion. Aorta: There is no dilatation of the ascending aorta. There is no dilatation of the aortic arch. The aortic root is normal in size. Pulmonary Artery: The main pulmonary artery is not well visualized. Venous: The inferior vena cava is dilated. There is less than 50% respiratory change in the inferior vena cava dimension. Conclusions The left ventricular chamber size is normal. Mild concentric left ventricular hypertrophy is observed. There is moderate to severely decreased left ventricular systolic function, LVEF 25-30% There is global LV hypokinesis with akinesis of the inferior/inferolateral valladares The left atrial chamber size is normal. The right ventricular cavity size is normal. The right ventricular global systolic function is mildly reduced. There is mild to moderate aortic regurgitation. There is evidence of mild pulmonary hypertension. None prior for comparison at time of interpretation Measurements Name Value Normal Range RVIDd (AP) 2D 2.5 cm (0.9 - 2.6) RVDdMajor (2D) 3.3 cm (2.2 - 4.4) RAd ISD 4CH 3.9 cm (3.4 - 4.9) RA (A4C)W 4 cm (2.9 - 4.6) IVSd (2D) 1.2 cm (0.6 - 1) LVPWd (2D) 1.1 cm (0.6 - 1) LVIDd (2D) 4.9 cm (3.6 - 5.4) LVIDs (2D) 4.5 cm - LV FS (2D) 8 % (25 - 45) Aortic Annulus 2.1 cm (1.4 - 2.6) Ao root diameter (2D) 3.4 cm (2.1 - 3.5) Ascending Ao 3.1 cm (2.1 - 3.4) Aortic arch 2.3 cm (1.8 - 3.4) LA dimension (AP) 2D 3.3 cm (2.3 - 3.8) LAd ISD 4CH 5.2 cm (2.9 - 5.3) LA ISD 4CH W 4 cm (2.5 - 4.5) Name Value Normal Range LA ESV SP 4CH (A/L) 44 ml - LA ESV SP 2CH (A/L) 55 ml - LA ESV BP (A/L) 52 ml - LA ESV BP (A/L) index 28 ml/m2 - LA ESV SP 4CH (MOD) 40 ml - LA ESV SP 2CH (MOD) 53 ml - Name Value Normal Range MV E-wave Vmax 0.98 m/sec - MV deceleration time 142.88 msec - MV A-wave Vmax 0.53 m/sec - MV E:A ratio 1.83 ratio - LV septal e' Vmax 0.06 m/sec - LV lateral e' Vmax 0.09 m/sec - LV E:e' septal ratio 16.33 ratio - LV E:e' lateral ratio 10.89 ratio - Name Value Normal Range AV Vmax 1.3 m/sec - AV VTI 21.77 cm - AV peak gradient 6.49 mmHg - AV mean gradient 2.96 mmHg - LVOT Vmax 1 m/sec - LVOT VTI 18.99 cm - LVOT peak gradient 4.4 mmHg - LVOT mean gradient 2.55 mmHg - AR PHT 455 msec - AR peak gradient 79.88 mmHg - ALEJANDRA Vmax 0.49 m/sec - Name Value Normal Range MR Vmax 5.19 m/sec - MR VTI 165.8 cm - MR flow (PISA) 77.69 ml/sec - MR ERO 0.15 cm2 - MR PISA radius 0.54 cm - MR alias Vmax 60 cm/sec - Name Value Normal Range TR Vmax 2.8 m/sec - TR peak gradient 31 mmHg - RAP 15 mmHg - RVSP 46 mmHg - IVC diameter 2.5 cm - Name Value Normal Range PV Vmax 0.78 m/sec - PV peak gradient 2.45 mmHg - Wallmotion BAS Not Seen BA Normal BAL Normal PAULA Normal BI Akinetic BIS Not Seen MAS Not Seen MA Normal MAL Hypokinetic MIL Hypokinetic MO Akinetic MIS Not Seen Not Seen AA Normal AL Akinetic AI Akinetic APEX Not Seen
[2018-01-23] MEDS: Insulin LISPRO* 1 UNITS UNIT SUBCUT SCH ×3 (09:41→18:19)
--- NOTE | 2018-01-23 09:59 | PN ---
Cardiology Progress Note Date of Service: 01/23/18 Attn coders please do not bill for this encounter Dr. Whitehead noted JVD Received a lot of IVF and will stop this Patient not hypoxic and comfortable laying flat Plan to proceed with angiogram as planned
[2018-01-23] MEDS ORDERED: fentaNYL* 50 MCG/ML 2 ML VIAL (100 MCG VIAL) ONE (13:17)
[2018-01-23] MEDS ORDERED: Lidocaine 1% INJ* 10 MG/ML 30 ML SDV ONE (13:18)
[2018-01-23] MEDS ORDERED: nitroGLYCERIN DRIP* 0 MCG/0 ML BTL ONE (13:18)
[2018-01-23] MEDS ORDERED: Heparin(*) 1000 UNIT/ML 10 ML VIAL CATH LAB IV ONE (13:18)
[2018-01-23] MEDS ORDERED: Heparin 2 UNITS/ML IVPREMIX* 2,000 ML IV ONE (13:18)
[2018-01-23] MEDS ORDERED: Iohexol 350 (CONTRAST) 200 ML MDV IV ONE (13:19)
[2018-01-23] MEDS ORDERED: Midazolam* 1 MG/ML 10 ML VIAL (10 MG) ONE (13:19)
[2018-01-23] MEDS ORDERED: LORazepam TAB(*) 1 MG PO ONE (15:38)
--- NOTE | 2018-01-23 15:56 | DS ---
Date of admission 01/22/2018 Date of transfer 01/23/2018 Service: Hospitalist/Improvement Spec Main diagnosis: Ventricular tachycardia Ischemic cardiomyopathy ETOH withdrawal Summary of care: Mr. Johnson was admitted with ventricular tachycardia symptomatic and sustained s/p chemical cardioversion with IV amiodarone and infusion. He had an initial fever that resolved without any other evidence of infection. He magnesium and potassium levels were replaced from mg 1.3 and k 3.0. The VT did not recur after starting a beta louis. He is on PRN IV ativan ETOH withdrawal protocol with no signs of withdrawal. TTE showed LVEF 25% with inferior/inferolateral wall akinesis that corresponded to angiogram showing a [employer]CH[employer]OLOGIST MICRO[employer]Y of the mid RCA that was collateralized. He did not suffer an acute SC but this was expected to have been within the last few months. Case reviewed with Dr. Khan, EP at [facility]. Patient will be transferred for consideration of advanced electrophysiology services including but not limited to advanced EP study with high risk ablation and/or secondary prevention ICD to try to prevent sudden which patient is at high risk for. Case reviewed with Dr. Lima from [facility]ist [facility] and patient will be accepted. Patient was counseled on alcohol and tobacco cessation 01/23/18 06:20 01/23/18 06:20 INR (Anticoag Therapy) 1.10 (0.77-1.02) H 01/22/18 18:42 APTT 46.7 seconds (26.0-36.3) H 01/23/18 09:30 Total Bilirubin 1.20 mg/dL (0.2-1.0) H 01/23/18 06:20 AST 117 U/L (13-39) H 01/23/18 06:20 ALT 26 U/L (7-52) 01/23/18 06:20 Alkaline Phosphatase 129 U/L (34-104) H 01/23/18 06:20 B-Natriuretic Peptide 757 pg/mL (-100) H 01/22/18 18:42 Total Protein 7.0 g/dL (6.4-8.9) 01/23/18 06:20 Albumin 3.7 g/dL (3.2-5.2) 01/23/18 06:20 Globulin 3.3 g/dL (2-4) 01/23/18 06:20 Albumin/Globulin Ratio 1.1 (1-3) 01/23/18 06:20 Triglycerides 480 mg/dL 01/23/18 06:20 Cholesterol 121 mg/dL 01/23/18 06:20 LDL Cholesterol mg/dL 01/23/18 06:20 HDL Cholesterol 32.1 mg/dL 01/23/18 06:20 TSH 1.90 mcIU/mL (0.34-5.60) 01/22/18 18:42 01/22/18 01/22/18 01/22/18 18:42 21:00 23:00 Troponin I 0.53 H* Cancelled 0.56 H* 01/23/18 06:20 Troponin I 0.46 H* Vital Signs: Temp Pulse Resp BP Pulse Ox 100.0 F 83 33 138/91 90 01/23/18 12:00 01/23/18 13:00 01/23/18 13:00 01/23/18 13:00 01/23/18 13:00 Home medications Albuterol HFA INHALER* [Ventolin HFA Inhaler*] 2 puff INH Q6H PRN 08/31/17 [ History Confirmed 01/22/18] Cyanocobalamin INJ * [Vitamin B12 INJ *] 1,000 mcg IM MONTHLY 01/22/18 [History Confirmed 01/22/18] Gemfibrozil TAB* [Lopid TAB*] 600 mg PO BID 01/22/18 [History Confirmed ] Hyoscyamine ER (NF) [Levbid (NF)] 0.375 mg PO DAILY 01/22/18 [History Confirmed 01/22/18] Multivitamins/Minerals TAB* [Theragran/minerals TAB*] 1 tab PO DAILY 01/22/18 [ History Confirmed 01/22/18] Omeprazole CAP* [Prilosec CAP* 20 MG] 20 mg PO DAILY 01/22/18 [History Confirmed 01/22/18] ACTIVE MEDICATIONS Acetaminophen (Tylenol Tab*) 650 mg PO Q4H PRN PRN Reason: FEVER/PAIN Last Admin: 01/23/18 06:29 Dose: 650 mg Albuterol (Ventolin Hfa Inhaler*) 2 puff INH Q6H PRN PRN Reason: WHEEZING Aspirin (Aspirin 81 Mg Chew Tab*) 81 mg PO DAILY DARNELL Last Admin: 01/23/18 08:19 Dose: 81 mg Atorvastatin Calcium (Lipitor*) 10 mg PO 1700 [facility] Device (Nicotine Mouth Piece*) 1 each INH .USE WITH NICOTROL PRN PRN Reason: CRAVING Last Admin: 01/23/18 04:29 Dose: 1 each Dextrose (D50w Syringe 50 Ml*) 12.5 gm IV PUSH .FOR FS < 60 - SS PRN PRN Reason: FS < 60 Docusate Sodium (Colace Cap*) 100 mg PO BID PRN PRN Reason: CONSTIPATION Folic Acid (Folvite Tab*) 1 mg PO DAILY [facility] Last Admin: 01/23/18 08:19 Dose: 1 mg Gemfibrozil (Lopid Tab*) 600 mg PO BID [facility] Last Admin: 01/23/18 08:19 Dose: 600 mg Heparin Sodium (Porcine) (Heparin Vial(*)) 5,000 units SUBCUT Q8HR [facility] Hyoscyamine (Levbid (Nf)) 0.375 mg PO DAILY [facility] Last Admin: 01/23/18 08:24 Dose: Not Given Sodium Chloride (Ns 0.9% 1000 Ml*) 1,000 mls @ 125 mls/hr IV .per rate [facility] Stop: 01/23/18 19:59 Insulin Human Lispro (Humalog*) 0 units SUBCUT AC [facility] PRN Reason: Protocol Last Admin: 01/23/18 11:31 Dose: Not Given Lorazepam (Ativan Inj*) 1 mg IV Q12H [facility] PRN Reason: Taper Stop: 01/25/18 16:59 Last Admin: 01/23/18 12:49 Dose: 1 mg Lorazepam (Ativan Inj*) 0 - 3 mg IV PUSH .PER [facility] PROTOCOL DARNELL PRN Reason: Protocol Losartan Potassium (Cozaar Tab*) 25 mg PO DAILY [facility] Magnesium Oxide (Magox 400 Tab*) 400 mg PO DAILY [facility] Last Admin: 01/23/18 09:15 Dose: 400 mg Metoprolol Succinate (Toprol Xl Tab*) 50 mg PO DAILY [facility] Last Admin: 01/23/18 09:15 Dose: 50 mg Morphine Sulfate (Morphine Vial*) 2 mg IV Q4H PRN PRN Reason: PAIN Multivitamins/Minerals (Theragran/Minerals Tab*) 1 tab PO DAILY [facility] Last Admin: 01/23/18 08:19 Dose: 1 tab Nicotine (Nicotine Inhaler*) 10 mg INH Q2H PRN PRN Reason: CRAVING Last Admin: 01/23/18 08:19 Dose: 10 mg Omeprazole (Prilosec Cap*) 20 mg PO DAILY [facility] Last Admin: 01/23/18 08:19 Dose: 20 mg Ondansetron HCl (Zofran Inj*) 4 mg IV Q4H PRN PRN Reason: NAUSEA/VOMITING Senna (Senokot Tab*) 1 tab PO BID PRN PRN Reason: CONSTIPATION Thiamine HCl (Vitamin B-1 Tab*) 100 mg PO DAILY [facility] Last Admin: 01/23/18 08:19 Dose: 100 mg Laboratory Tests 01/22/18 01/22/18 01/22/18 18:42 18:42 18:42 WBC 11.5 H RBC 2.99 L Hgb 11.2 L Hct 31 L MCV 105 H MCH 37 H MCHC 36 RDW 15 Plt Count 263 MPV 6.6 L Neut % (Auto) 61.2 Lymph % (Auto) 32.0 [place] % (Auto) 5.7 Eos % (Auto) 0.1 Baso % (Auto) 1.0 Absolute Neuts (auto) 7.1 Absolute Lymphs (auto) 3.7 Absolute Monos (auto) 0.7 Absolute Eos (auto) 0 Absolute Basos (auto) 0.1 Absolute Nucleated RBC 0 Nucleated RBC % 0.2 ESR 25 H INR (Anticoag Therapy) 1.10 H APTT 35.0 Sodium 135 L Potassium TNP Chloride 100 L Carbon Dioxide 19 L Anion Gap 16 H BUN 9 Creatinine 0.83 Est GFR ( Amer) 126.6 Est GFR (Non-Af Amer) 98.5 BUN/Creatinine Ratio 10.8 Glucose 162 H POC Glucose (mg/dL) Hemoglobin A1c Lactic Acid Calcium 8.6 Magnesium 1.6 L Total Bilirubin 0.40 AST TNP ALT 12 Alkaline Phosphatase 91 Total Creatine Kinase 204 Troponin I 0.53 H* C-Reactive Protein 3.99 B-Natriuretic Peptide Total Protein 6.8 Albumin 3.8 Globulin 3.0 Albumin/Globulin Ratio 1.3 Triglycerides Cholesterol LDL Cholesterol LDL Cholesterol Direct HDL Cholesterol Lipase Procalcitonin TSH 1.90 Urine Color Urine Appearance Urine pH Ur Specific [place] Urine Protein Urine Ketones Urine Blood Urine Nitrate Urine Bilirubin Urine Urobilinogen Ur Leukocyte Esterase Urine WBC (Auto) Urine RBC (Auto) Ur Squamous Epith Cells Urine Bacteria Urine Glucose Urine Opiates Screen Ur Barbiturates Screen Ur Phencyclidine Scrn Ur Amphetamines Screen U Benzodiazepines Scrn Urine Cocaine Screen U Cannabinoids Screen Serum Alcohol 61 H Influenza A (Rapid) Influenza B (Rapid) 01/22/18 01/22/18 01/22/18 18:42 18:42 18:42 WBC RBC Hgb Hct MCV MCH MCHC RDW Plt Count MPV Neut % (Auto) Lymph % (Auto) [place] % (Auto) Eos % (Auto) Baso % (Auto) Absolute Neuts (auto) Absolute Lymphs (auto) Absolute Monos (auto) Absolute Eos (auto) Absolute Basos (auto) Absolute Nucleated RBC Nucleated RBC % ESR INR (Anticoag Therapy) APTT Sodium Potassium Chloride Carbon Dioxide Anion Gap BUN Creatinine Est GFR ( Amer) Est GFR (Non-Af Amer) BUN/Creatinine Ratio Glucose POC Glucose (mg/dL) Hemoglobin A1c Lactic Acid 3.3 H* Calcium Magnesium Total Bilirubin AST ALT Alkaline Phosphatase Total Creatine Kinase Troponin I C-Reactive Protein B-Natriuretic Peptide 757 H Total Protein Albumin Globulin Albumin/Globulin Ratio Triglycerides Cholesterol LDL Cholesterol LDL Cholesterol Direct HDL Cholesterol Lipase Procalcitonin 0.1 TSH Urine Color Urine Appearance Urine pH Ur Specific [place] Urine Protein Urine Ketones Urine Blood Urine Nitrate Urine Bilirubin Urine Urobilinogen Ur Leukocyte Esterase Urine WBC (Auto) Urine RBC (Auto) Ur Squamous Epith Cells Urine Bacteria Urine Glucose Urine Opiates Screen Ur Barbiturates Screen Ur Phencyclidine Scrn Ur Amphetamines Screen U Benzodiazepines Scrn Urine Cocaine Screen U Cannabinoids Screen Serum Alcohol Influenza A (Rapid) Influenza B (Rapid) 01/22/18 01/22/18 01/22/18 18:42 18:42 20:26 WBC RBC Hgb Hct MCV MCH MCHC RDW Plt Count MPV Neut % (Auto) Lymph % (Auto) [place] % (Auto) Eos % (Auto) Baso % (Auto) Absolute Neuts (auto) Absolute Lymphs (auto) Absolute Monos (auto) Absolute Eos (auto) Absolute Basos (auto) Absolute Nucleated RBC Nucleated RBC % ESR INR (Anticoag Therapy) APTT Sodium Potassium Chloride Carbon Dioxide Anion Gap BUN Creatinine Est GFR ( Amer) Est GFR (Non-Af Amer) BUN/Creatinine Ratio Glucose POC Glucose (mg/dL) Hemoglobin A1c 4.6 Lactic Acid Calcium Magnesium Total Bilirubin AST ALT Alkaline Phosphatase Total Creatine Kinase Troponin I C-Reactive Protein B-Natriuretic Peptide Total Protein Albumin Globulin Albumin/Globulin Ratio Triglycerides Cholesterol LDL Cholesterol LDL Cholesterol Direct HDL Cholesterol Lipase Procalcitonin TSH Urine Color Yellow Urine Appearance Clear Urine pH 5.0 Ur Specific [place] 1.016 Urine Protein 2+(100 mg/dl) A Urine Ketones 1+ A Urine Blood 1+ A Urine Nitrate Negative Urine Bilirubin Negative Urine Urobilinogen Negative Ur Leukocyte Esterase Negative Urine WBC (Auto) Trace(0-5/hpf) Urine RBC (Auto) Trace(0-2/hpf) Ur Squamous Epith Cells Present A Urine Bacteria Absent Urine Glucose 2+(150 mg/dl) A Urine Opiates Screen None detected Ur Barbiturates Screen None detected Ur Phencyclidine Scrn None detected Ur Amphetamines Screen None detected U Benzodiazepines Scrn None detected Urine Cocaine Screen None detected U Cannabinoids Screen None detected Serum Alcohol Influenza A (Rapid) Influenza B (Rapid) 01/22/18 01/22/18 01/22/18 21:00 21:00 23:00 WBC RBC Hgb Hct MCV MCH MCHC RDW Plt Count MPV Neut % (Auto) Lymph % (Auto) [place] % (Auto) Eos % (Auto) Baso % (Auto) Absolute Neuts (auto) Absolute Lymphs (auto) Absolute Monos (auto) Absolute Eos (auto) Absolute Basos (auto) Absolute Nucleated RBC Nucleated RBC % ESR INR (Anticoag Therapy) APTT Sodium Potassium TNP 3.0 L Chloride Carbon Dioxide Anion Gap BUN Creatinine Est GFR ( Amer) Est GFR (Non-Af Amer) BUN/Creatinine Ratio Glucose POC Glucose (mg/dL) Hemoglobin A1c Lactic Acid 1.8 Calcium Magnesium 1.3 L Total Bilirubin AST 96 H ALT Alkaline Phosphatase Total Creatine Kinase Troponin I Cancelled 0.56 H* C-Reactive Protein B-Natriuretic Peptide Total Protein Albumin Globulin Albumin/Globulin Ratio Triglycerides Cholesterol LDL Cholesterol LDL Cholesterol Direct HDL Cholesterol Lipase 72 Procalcitonin TSH Urine Color Urine Appearance Urine pH Ur Specific [place] Urine Protein Urine Ketones Urine Blood Urine Nitrate Urine Bilirubin Urine Urobilinogen Ur Leukocyte Esterase Urine WBC (Auto) Urine RBC (Auto) Ur Squamous Epith Cells Urine Bacteria Urine Glucose Urine Opiates Screen Ur Barbiturates Screen Ur Phencyclidine Scrn Ur Amphetamines Screen U Benzodiazepines Scrn Urine Cocaine Screen U Cannabinoids Screen Serum Alcohol Influenza A (Rapid) Influenza B (Rapid) 01/23/18 01/23/18 01/23/18 02:55 06:20 06:20 WBC 8.2 RBC 3.13 L Hgb 11.5 L Hct 33 L MCV 105 H MCH 37 H MCHC 35 RDW 15 Plt Count 235 MPV 7.4 Neut % (Auto) 59.8 Lymph % (Auto) 31.1 [place] % (Auto) 7.7 H Eos % (Auto) 0.3 Baso % (Auto) 1.1 Absolute Neuts (auto) 4.9 Absolute Lymphs (auto) 2.6 Absolute Monos (auto) 0.6 Absolute Eos (auto) 0 Absolute Basos (auto) 0.1 Absolute Nucleated RBC 0 Nucleated RBC % 0.2 ESR INR (Anticoag Therapy) APTT 69.8 H Sodium Potassium Chloride Carbon Dioxide Anion Gap BUN Creatinine Est GFR ( Amer) Est GFR (Non-Af Amer) BUN/Creatinine Ratio Glucose POC Glucose (mg/dL) Hemoglobin A1c Lactic Acid 2.0 Calcium Magnesium Total Bilirubin AST ALT Alkaline Phosphatase Total Creatine Kinase Troponin I C-Reactive Protein B-Natriuretic Peptide Total Protein Albumin Globulin Albumin/Globulin Ratio Triglycerides Cholesterol LDL Cholesterol LDL Cholesterol Direct HDL Cholesterol Lipase Procalcitonin TSH Urine Color Urine Appearance Urine pH Ur Specific [place] Urine Protein Urine Ketones Urine Blood Urine Nitrate Urine Bilirubin Urine Urobilinogen Ur Leukocyte Esterase Urine WBC (Auto) Urine RBC (Auto) Ur Squamous Epith Cells Urine Bacteria Urine Glucose Urine Opiates Screen Ur Barbiturates Screen Ur Phencyclidine Scrn Ur Amphetamines Screen U Benzodiazepines Scrn Urine Cocaine Screen U Cannabinoids Screen Serum Alcohol Influenza A (Rapid) Influenza B (Rapid) 01/23/18 01/23/18 01/23/18 06:20 09:30 09:35 WBC RBC Hgb Hct MCV MCH MCHC RDW Plt Count MPV Neut % (Auto) Lymph % (Auto) [place] % (Auto) Eos % (Auto) Baso % (Auto) Absolute Neuts (auto) Absolute Lymphs (auto) Absolute Monos (auto) Absolute Eos (auto) Absolute Basos (auto) Absolute Nucleated RBC Nucleated RBC % ESR INR (Anticoag Therapy) APTT 46.7 H Sodium 135 L Potassium 4.6 Chloride 109 Carbon Dioxide 22 Anion Gap 4 BUN 8 Creatinine 0.80 Est GFR ( Amer) 132.1 Est GFR (Non-Af Amer) 102.7 BUN/Creatinine Ratio 10.0 Glucose 161 H POC Glucose (mg/dL) 149 H Hemoglobin A1c Lactic Acid Calcium 8.3 L Magnesium 2.5 Total Bilirubin 1.20 H AST 117 H ALT 26 Alkaline Phosphatase 129 H Total Creatine Kinase Troponin I 0.46 H* C-Reactive Protein B-Natriuretic Peptide Total Protein 7.0 Albumin 3.7 Globulin 3.3 Albumin/Globulin Ratio 1.1 Triglycerides 480 Cholesterol 121 LDL Cholesterol LDL Cholesterol Direct 28 HDL Cholesterol 32.1 Lipase Procalcitonin TSH Urine Color Urine Appearance Urine pH Ur Specific [place] Urine Protein Urine Ketones Urine Blood Urine Nitrate Urine Bilirubin Urine Urobilinogen Ur Leukocyte Esterase Urine WBC (Auto) Urine RBC (Auto) Ur Squamous Epith Cells Urine Bacteria Urine Glucose Urine Opiates Screen Ur Barbiturates Screen Ur Phencyclidine Scrn Ur Amphetamines Screen U Benzodiazepines Scrn Urine Cocaine Screen U Cannabinoids Screen Serum Alcohol Influenza A (Rapid) Influenza B (Rapid) 01/23/18 11:10 WBC RBC Hgb Hct MCV MCH MCHC RDW Plt Count MPV Neut % (Auto) Lymph % (Auto) [place] % (Auto) Eos % (Auto) Baso % (Auto) Absolute Neuts (auto) Absolute Lymphs (auto) Absolute Monos (auto) Absolute Eos (auto) Absolute Basos (auto) Absolute Nucleated RBC Nucleated RBC % ESR INR (Anticoag Therapy) APTT Sodium Potassium Chloride Carbon Dioxide Anion Gap BUN Creatinine Est GFR ( Amer) Est GFR (Non-Af Amer) BUN/Creatinine Ratio Glucose POC Glucose (mg/dL) Hemoglobin A1c Lactic Acid Calcium Magnesium Total Bilirubin AST ALT Alkaline Phosphatase Total Creatine Kinase Troponin I C-Reactive Protein B-Natriuretic Peptide Total Protein Albumin Globulin Albumin/Globulin Ratio Triglycerides Cholesterol LDL Cholesterol LDL Cholesterol Direct HDL Cholesterol Lipase Procalcitonin TSH Urine Color Urine Appearance Urine pH Ur Specific [place] Urine Protein Urine Ketones Urine Blood Urine Nitrate Urine Bilirubin Urine Urobilinogen Ur Leukocyte Esterase Urine WBC (Auto) Urine RBC (Auto) Ur Squamous Epith Cells Urine Bacteria Urine Glucose Urine Opiates Screen Ur Barbiturates Screen Ur Phencyclidine Scrn Ur Amphetamines Screen U Benzodiazepines Scrn Urine Cocaine Screen U Cannabinoids Screen Serum Alcohol Influenza A (Rapid) Negative Influenza B (Rapid) Negative
[2018-01-23] MEDS ORDERED: Losartan TAB* 25 MG PO SCH (16:00)
[2018-01-23] MEDS ORDERED: NS 0.9% 1000 ML* 1,000 ML IV SCH (16:00)
[2018-01-23] MEDS ORDERED: Atorvastatin* 10 MG TAB PO SCH (17:00)
[2018-01-23 18:43] VITALS: BP 142/81
[2018-01-23] MEDS ORDERED: Heparin VIAL(*) 5000 UNITS/ML VIAL (FIVE THOUSAND) SUBCUT SCH (22:00)
--- NOTE | 2018-01-24 19:57 | CATH ---
CC: Dr. Lawrence; Dr. Hiram Durham; Dr. Zack Khan * CARDIAC CATHETERIZATION REPORT: DATE OF PROCEDURE: 01/23/18 - ROOM #ICU-08 REFERRING PHYSICIAN: The procedure was asked by Dr. Hiram Durham, patient's primary glass artist, to perform diagnostic coronary arteriography in a gentleman with presentation of sustained monomorphic ventricular tachycardia and abnormal cardiac enzymes, rule out presence of coronary artery disease with echocardiogram demonstrating inferior wall motion abnormality. PROCEDURE: Coronary arteriography. The patient was interviewed and examined while in the floor of the hospital where the risks and benefits were explained. He understood them and wished to proceed. The right radial artery was assessed and found to be somewhat small in caliber, and as such, the decision was made to proceed via the right femoral approach. LABORATORY RESULTS PRECARDIAC CATHETERIZATION: Hemoglobin and hematocrit of 11.5 and 33 with a platelet count of 235,000. BUN and creatinine were 8 and 0.8 with a potassium of 4.6. EQUIPMENT UTILIZED: 1. Right femoral sheath - 11 cm [employer] sheath. 2. Diagnostic coronary catheters - a 5-[place] FL4 left Judkin's catheter and a 5-[place] FR4 curved Judkin's right coronary catheter. CLOSURE DEVICE: A 5-[place] Mynx closure device. DESCRIPTION OF THE PROCEDURE: The patient was brought to the cardiovascular laboratory where a formal time-out was performed. He was prepped and draped in sterile fashion. The right femoral artery area was anesthetized with 1% lidocaine. Right femoral artery was cannulated with an anterior wall stick and the sheath was placed. Coronary arteriography was performed utilizing the FL4 and FR4 5-[place] diagnostic catheters. Following this, an injection was made into the right femoral sheath to assess the eligibility to utilize closure device. It was found to be acceptable for this, and as such, a 5-[place] Mynx closure device was deployed with good hemostasis. The total contrast used was 65 cc of Omnipaque dye. The radiation exposure included 3.9 minutes of fluoro time. The air kerma radiation was 703 mGy. The DAP radiation was 4197 microgray/m2. RESULTS: CORONARY ARTERIOGRAPHY: A. Left coronary artery: 1. Left main - long in nature with mild tapering of the mid to distal segment of approximately 25%. 2. Left anterior descending artery - the left anterior descending artery had a caliber change in his proximal portion with an area of 50% narrowing in its proximal portion. There appeared to be some ulceration within the proximal portion. The mid to the distal portion of the left anterior descending artery had no significant stenosis seen throughout the course of the vessel. The diagonal branches similarly had no significant stenosis. 3. Circumflex artery - there was a trifurcation marginal branch which bifurcated in its mid to distal segment. There was mild luminal irregularities but no critical stenosis noted. The continuation of circumflex supplied a very thin small bifurcating mid obtuse marginal branch that ended in a low-lying small, bifurcating, small caliber obtuse marginal branch. In between, the mid and last obtuse marginal branch, there was an area of narrowing of 40%. Of note, collateral blood flow was seen from the LCA supplying the posterior left ventricular branch of the right coronary artery as well as through the septal perforators to the RPDA. B. Right coronary artery - a dominant vessel (as visualized to collaterals with tortuosity in its proximal portion in areas of narrowing of 30% to 40%). The mid to distal portion had a narrowing as much as 60% and the artery was found to be totally occluded after just turning on to the inferior surface of the heart. 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 Moderate disease seen within the proximal left anterior descending with caliber changes described above.This information was shared to Dr. Hiram Durham, the patient's primary glass artist, who will utilize in further management of the patient's presentation with sustained ventricular tachycardia. [id number]/[facility] #: [id number] HOSPITALLucero
== END 2018-01-23 19:30 | disposition short-term general hospital (02) | DRG 191 ==
LOC: ED 17:50 → ICU 20:07
PROVIDERS: ADMIT Pediatrics; ATTEND Internal Medicine
PROC: B2111ZZ Fluoroscopy of Multiple Coronary Arteries using Low Osmolar Contrast (ICD-10-PCS; principal; 2018-01-22)
PROC: 5A2204Z Restoration of Cardiac Rhythm, Single (ICD-10-PCS; 2018-01-22)
DX: I47.2 Ventricular tachycardia (principal); F10.239 Alcohol dependence with withdrawal, unspecified; Y90.9 Presence of alcohol in blood, level not specified; I25.5 Ischemic cardiomyopathy; I10 Essential (primary) hypertension; F17.210 Nicotine dependence, cigarettes, uncomplicated; K58.9 Irritable bowel syndrome, unspecified; E11.9 Type 2 diabetes mellitus without complications; I25.10 Atherosclerotic heart disease of native coronary artery without angina pectoris; E53.8 Deficiency of other specified B group vitamins; J44.9 Chronic obstructive pulmonary disease, unspecified; R50.9 Fever, unspecified; K21.9 Gastro-esophageal reflux disease without esophagitis; E78.1 Pure hyperglyceridemia; Z88.6 Allergy status to analgesic agent; Z83.3 Family history of diabetes mellitus; Z82.49 Family history of ischemic heart disease and other diseases of the circulatory system; Z71.41 Alcohol abuse counseling and surveillance of alcoholic; Z71.6 Tobacco abuse counseling; Z79.82 Long term (current) use of aspirin; Z79.4 Long term (current) use of insulin; Z79.01 Long term (current) use of anticoagulants
CPT/HCPCS: 36415; 71045; 76937; 80053; 80061; 80307; 80320; 81003; 81015; 82550; 83036; 83605; 83690; 83721; 83735; 83880; 84145; 84443; 84484; 85025; 85610; 85652; 85730; 86140; 86703; 87040; 87086; 87502; 87641; 93005; 93306; 93454; 99213; 99285; A9270-GY; C1887; G0463; G0480; J0153; J0282; J1644; J2060; J2250; J3010; J3411; J3475; J3480